=== PATIENT | female | born 1960 | race Caucasian/White ===

== ENCOUNTER 2020-12-17 05:12 | Emergency (ER) | payer OTHER ==
[2020-12-17] MEDS ORDERED: Lorazepam 2 MG/ML VIAL ONE (06:03)
[2020-12-17] MEDS ORDERED: Boostrix 0.5 ML (Tdap) VIAL ONE (06:04)
[2020-12-17] MEDS ORDERED: Ketorolac Tromethamine 30 MG/ML VIAL ONE (06:04)
== END 2020-12-17 07:10 | disposition home or self-care (01) ==
LOC: NAV ERS 05:12
DX: S29.012A Strain of muscle and tendon of back wall of thorax, initial encounter (principal); S20.219A Contusion of unspecified front wall of thorax, initial encounter; S80.11XA Contusion of right lower leg, initial encounter; S60.511A Abrasion of right hand, initial encounter; E03.9 Hypothyroidism, unspecified; I10 Essential (primary) hypertension; Z79.899 Other long term (current) drug therapy; V89.2XXA Person injured in unspecified motor-vehicle accident, traffic, initial encounter
CPT/HCPCS: 90471; 90715; 96374; 96375; J1885; J2060